=== PATIENT | male | born 1950 | race Caucasian/White ===

== ENCOUNTER 2020-02-03 00:42 | Outpatient (CLI) | payer MEDICARE, SELFPAY ==
--- NOTE | 2020-02-03 | DI.NM_ITS ---
APPROVED REPORT Exam: Pharmacologic Patient Location: Out-Patient Room/Bed: Stress Nurse: Lakshmi Mills RN BMI: 25.84 Baseline Rhythm: Sinus Bradycardia Indications: Chest pain. Symptomatic atrial fibrillation. Medical History Medical History: Atrial Fibrillation, HTN, HLD, Anxiety, Former smoker. Cardiac Medications: Amlodipine. Metoprolol. Rosuvastatin. Omeprazole. Eliquis. Lisinopril. Aspirin. Allergies: a statin medication Cardiac Risk Factors: FHX of CAD, HTN, Hyperlipidemia, Smoking (former) Previous Cardiac Procedures: None. Pretest Chest Pain Characteristics: None. Exercise History: Sedentary Physical Disabilities: None. Lung Sounds: Clear to auscultation Heart Sounds: Regular Stress Test Details Test: Exercise stress converted to pharmacologic stress due to failure to obtain a diagnostic stress test. Reason for pharmacologic stress test: changed from exercise stress test due to inability to reach t arget heart rate. Nuclear Acquisition: Rest Tc-99m/Stress Tc-99m 1 day Rest Isotope: Tc-99m Sestamibi. Dose: 10.7 Date: 02/03/2020 Injection Time: 1020 Stress Isotope: Tc-99m Sestamibi. Dose: 31.5 Date: 02/03/2020 Injection Time: 1145 HR Resting HR Supine: 50 bpm Max Heart Rate (APMHR): 151.816887 bpm Resting HR Standin bpm Target HR (85% APMHR): 128.166948 bpm Max HR Achieved: 99 bpm % of APMHR: 65.56 Recovery HR: 71 bpm HR response to stress: Blunted HR response to stress Comment: patient on beta rachael. BP Resting BP Supine: 146/82 mmHg Resting BP Standin/88 mmHg Max BP: 160/76 mmHg Recovery BP: 144/72 mmHg BP response to stress: Normal blood pressure response to stress. ECG Resting ECG: Sinus Rhythm Ectopy: None. Stress ECG: Sinus Rhythm ST Change: Horizontal ST depression, Downsloping ST depression Lead(s): V3, V4, V5, V6 Stage: 1 min following injection. Arrhythmia: occasional PAC, PAC couplet. Recovery ECG: Sinus Rhythm Recovery ST Change: ST segment deviation returning to baseline by 6 minutes post injection. Recovery Arrhythmia: PAC's. Clinical Reason for Termination: Fatigue Exercise duration: 6 min03 sec Highest Stage Reached: Stage 3: 3.4 mph at 14% grade. Exercise capacity: 7.27 METs Stress ECG Conclusion 1. Resting electrocardiogram was normal 2. Patient underwent exercise using the Ab protocol and completed a workload of 7.27 METS. He ach ieved a heart rate of 99 which was 65% of predicted and he was then given regadenoson 3. Electrocardiographically the test was nondiagnostic due to inadequate heart rate 4. Atrial premature beats were noted Stress Test Summary STAGE Time (mins) Speed (mph) Grade (%) HR BP SYMPTOMS METS Supine 50 146/82 Standing 55 140/88 . 1 3 1.7 10 81 152/84 4.6 2 6 2.5 12 93 7 1 min post Lexiscan injection 98 160/76 SOB 3 min post Lexiscan injection 92 156/74 SOB resolved. 6 min post Lexiscan injection 76 150/74 9 min post Lexiscan injection 71 144/72 MPI Conclusion Normal myocardial perfusion without evidence of ischemia or prior infarction EF 66% Radiologist Interpretation Radiologist agrees with Furniture Removalist'S Assistant's Interpretation. Radiologist Interpretation by: Noah Zepeda MD Interpretation Date/Time: 02/04/2020 10:34:39
[2020-02-03] MEDS: Regadenoson 0.4 MG/5 ML SYR IVP (12:17)
== END 2020-02-03 01:02 ==
PROVIDERS: PCP Family Medicine; Visit Provider Internal Medicine Interventional Cardiology
DX: R07.9 Chest pain, unspecified (principal); I48.91 Unspecified atrial fibrillation; I10 Essential (primary) hypertension; E78.5 Hyperlipidemia, unspecified; Z82.49 Family history of ischemic heart disease and other diseases of the circulatory system; Z87.891 Personal history of nicotine dependence
CPT/HCPCS: 78452; 93016; 93018; 93017; J2785